=== PATIENT | female | born 1970 | race Hispanic/Latino ===

== ENCOUNTER 2018-03-19 16:16 | Observation (INO) | payer MEDICARE, OTHER ==
[2018-03-19 16:16] VITALS: BMI 40.4
[2018-03-19] MEDS ORDERED: Morphine 4 mg/ml ISec IVP STA (17:23)
[2018-03-19 17:49] LABS: BASO # 0.02 K/mm3 (0.0-2.0); BASO % 0.2 % (0.0-3.0); EOS # 0.1 (0.0-0.7); EOS % 0.8 % (1.5-5.0); GRAN # 7.33 (1.4-6.5); GRAN % 77.5 % (50.0-68.0); HEMOGLOBIN 10.8 g/dL (12.0-16.0); LYMPH # 1.5 (1.2-3.4); LYMPH % 16.1 % (22.0-35.0); MEAN CORPUSCULAR HEMOGLOBIN 27.4 pg (25.0-35.0); MONO # 0.5 (0.1-0.6); MONO % 5.4 % (1.0-6.0); RBC 3.94 10^6/uL (3.5-6.1); RED CELL DISTRIBUTION WIDTH 16.5 % (11.5-14.5); WHITE BLOOD COUNT 9.5 10^3/ul (4.5-11.0)
[2018-03-19 17:52] LABS: URINE BILIRUBIN NEGATIVE (NEGATIVE); URINE BLOOD SMALL (NEGATIVE); URINE GLUCOSE (UA) NEGATIVE (NEGATIVE); URINE LEUKOCYTE ESTERASE NEGATIVE Leu/uL (NEGATIVE); URINE PROTEIN NEGATIVE mg/dL (<30 mg/dL); URINE UROBILINOGEN 0.2 E.U./dL (<1 E.U./dL)
[2018-03-19 18:05] LABS: ALB/GLOB RATIO 1.3 (1.1-1.8); ALBUMIN 4.5 g/dL (3.0-4.8); ALT/SGPT 35 U/L (7-56); AST/SGOT 32 U/L (14-36); BLOOD UREA NITROGEN 10 mg/dL (7-21); CALCIUM 9.9 mg/dL (8.4-10.5); GFR AFRICAN-AMERICAN > 60; GFR NON-AFRICAN AMERICAN > 60; LIPASE 36 U/L (23-300)
[2018-03-19 18:08] LABS: URINE APPEARANCE CLEAR (CLEAR); URINE COLOR YELLOW (YELLOW)
[2018-03-19 18:15] LABS: URINE WBC 0 - 2 /hpf (0-6)
[2018-03-19 18:16] LABS: URINE BACTERIA FEW (NEG)
[2018-03-19] MEDS ORDERED: Iohexol 350 MG/100 ML VIAL ONE (18:59)
[2018-03-19] MEDS ORDERED: HYDROmorphone 1 mg/ml ISec IVP STA ×2 (19:51→22:37)
--- NOTE | 2018-03-19 20:36 | CT ---
EXAM: CT Abdomen and Pelvis With Intravenous Contrast EXAM DATE/TIME: 03/19/2018 5:24 PM CLINICAL HISTORY: The patient age is 47 years old and is female; Pain; Abdominal pain; Acute; Additional info: Right sided abd pain Facility exam id and description: Ct abdpelciv abd pelvis iv contrast only TECHNIQUE: Axial computed tomography images of the abdomen and pelvis with intravenous contrast. All CT scans at this facility use one or more dose reduction techniques, viz.: automated exposure control; ma/kV adjustment per patient size (including targeted exams where dose is matched to indication; i.e. head); or iterative reconstruction technique. Coronal and sagittal reformatted images were created and reviewed. CONTRAST: 100 mL of omni 350 administered intravenously. COMPARISON: CT - ABD PELVIS IV CONTRAST ONLY 2015-12-19 19:14 FINDINGS: Lung bases: Mild atelectatic changes are identified within the lingula and dependent portions of the lower lobes, left side greater than right. ABDOMEN: Liver: There is mild hypodense fatty infiltration of the liver. Gallbladder and bile ducts: Surgical clips are identified within the gallbladder fossa, compatible with cholecystectomy. Pancreas: Normal contour, without acute peripancreatic stranding. Spleen: No splenomegaly. Adrenals: No mass. Kidneys and ureters: There is right renal pelviectasis. Hypodense probable parapelvic cysts are visualized within the left kidney. One of the larger presumed parapelvic cysts measures 2.1 x 1.2 cm, which has increased in size. Stomach and bowel: There is moderate fecal material within the colon. No obstruction. The previously visualized wall thickening of the descending colon has resolved. PELVIS: Appendix: No findings to suggest acute appendicitis. Bladder: No mass. Reproductive: Within the left ovary, there is a 1.9 x 1.6 cm hypodense probable cyst. ABDOMEN and PELVIS: Intraperitoneal space: No free air. Bones/joints: There is grade I anterolisthesis of L3 on L4. Advanced degenerative changes are again seen at this level, with severe bilateral neural foraminal narrowing. Hypertrophic degenerative changes are noted within the spine. Soft tissues: There is mild herniation of fat into the umbilicus. Vasculature: No abdominal aortic aneurysm. Lymph nodes: A few stable intrapelvic lymph nodes are identified, with thin cortices and prominent fatty elicia. There is no significant retroperitoneal lymphadenopathy. IMPRESSION: 1. There is mild hypodense fatty infiltration of the liver. 2. There is right renal pelviectasis. Hypodense probable parapelvic cysts are visualized within the left kidney. One of the larger presumed parapelvic cysts measures 2.1 x 1.2 cm, which has increased in size. 3. Within the left ovary, there is a 1.9 x 1.6 cm hypodense probable cyst. This can be further evaluated with ultrasound. 4. There is grade I anterolisthesis of L3 on L4. Advanced degenerative changes are again seen at this level, with severe bilateral neural foraminal narrowing. 5. Additional CT findings described above.
--- NOTE | 2018-03-19 22:45 | ED PDOC ---
Arrival/HPI - General Chief Complaint: Abdominal Pain Time Seen by Provider: 03/19/18 16:32 Historian: Patient - History of Present Illness Narrative History of Present Illness (Text): 03/19/18 22:54 47-year-old female with a history of Crohn's disease presents today with a three -day history of worsening abdominal pain. Patient believes that she's having a flareup of her Crohn's. Patient denies chest pain or shortness of breath. She denies diarrhea. Patient complaining of nausea no vomiting. Patient denies dizziness or weakness. Patient states pain is crampy and intermittently sharp. Pt states pain stays on the right side of the abdomen. She denies radiation of pain to the flank. She denies dysuria or urinary frequency. No other complaints Time/Duration: Other (3 days) Symptom Onset: Gradual Symptom Course: Worsening Past Medical History - Provider Review Nursing Documentation Reviewed: Yes - Travel History Have you recently traveled outside [place] w/in the past 3 mons?: No - Infectious Disease Hx of Infectious Diseases: None - Tetanus Immunization Tetanus Immunization: Unknown - Cardiac Hx Cardiac Disorders: Yes Hx Hypertension: Yes Hx Pacemaker: No - Pulmonary Hx Respiratory Disorders: No - Neurological Hx Paralysis: No - HEENT Hx HEENT Disorder: No - Renal Hx Renal Disorder: No - Endocrine/Metabolic Hx Diabetes Mellitus Type 2: No - Hematological/Oncological Hx Blood Transfusions: No Hx Blood Transfusion Reaction: (NA) - Integumentary Hx Dermatological Disorder: No - Musculoskeletal/Rheumatological Hx Musculoskeletal Disorders: Yes (6 buldging disks) - Gastrointestinal Hx Gastrointestinal Disorders: Yes Hx Crohn's Disease: Yes Hx Gastroesophageal Reflux: Yes - Genitourinary/Gynecological Hx Genitourinary Disorders: No - Psychiatric Hx Emotional Abuse: No Hx Physical Abuse: No Hx Substance Use: No - Surgical History Hx Section: Yes - Anesthesia Hx Anesthesia Reactions: No Hx Malignant Hyperthermia: No - Suicidal Assessment Feels Threatened In Home Enviroment: No Family/Social History - Physician Review Nursing Documentation Reviewed: Yes Family/Social History: Unknown Family HX Smoking Status: Never Smoked Hx Alcohol Use: No Hx Substance Use: No Hx Substance Use Treatment: No Allergies/Home Meds Allergies/Adverse Reactions: Allergies No Known Allergies Allergy (Verified 03/19/18 16:28) Home Medications: Home Meds Medication Instructions Recorded Confirmed Dexlansoprazole [Dexilant] 60 mg PO DAILY 08/13/13 03/19/18 Mercaptopurine [6-Mp] 50 mg PO DAILY 02/20/14 03/19/18 Calcitriol [Rocaltrol] 0.25 mcg PO DAILY 07/04/16 03/19/18 Calcium Carbonate/Vitamin D3 2 tab PO DAILY 07/04/16 03/19/18 [Caltrate 600 + D Tablet] Mesalamine ER Cap [Pentasa] 2,000 mg PO BID 07/04/16 03/19/18 Multivit-Min/FA/Lycopen/Lutein 2 tab PO DAILY 07/04/16 03/19/18 [Centrum Silver Tablet] hydrOXYzine HCl [Atarax] 25 mg PO Q8H 07/04/16 03/19/18 predniSONE [predniSONE Tab] 5 mg PO DAILY PRN 07/04/16 03/19/18 Ferrous Sulfate [Feosol] 325 mg PO BID 03/19/18 03/19/18 amLODIPine [Norvasc] 5 mg PO DAILY 03/19/18 03/19/18 Review of Systems - Review of Systems Constitutional: absent: Fatigue, Fevers Respiratory: absent: SOB, Cough Cardiovascular: absent: Chest Pain, Palpitations Gastrointestinal: Abdominal Pain, Nausea, Vomiting. absent: Constipation, Diarrhea Genitourinary Female: absent: Dysuria, Frequency, Hematuria Musculoskeletal: absent: Arthralgias, Back Pain, Neck Pain Skin: absent: Rash, Pruritis Psychiatric: absent: Anxiety, Depression Physical Exam Vital Signs Reviewed: Yes Vital Signs Temp Pulse Resp BP Pulse Ox 03/19/18 22:07 78 18 121/62 99 03/19/18 18:28 98.6 F 72 16 184/92 H 99 03/19/18 16:49 98.7 F 81 18 126/69 100 Temperature: Afebrile Blood Pressure: Normal Pulse: Regular Respiratory Rate: Normal Appearance: Positive for: Well-Appearing, Non-Toxic, Comfortable Pain Distress: None Mental Status: Positive for: Alert and Oriented X 3 - Systems Exam Head: Present: Atraumatic Neck: Present: Normal Range of Motion Respiratory/Chest: Present: Clear to Auscultation, Good Air Exchange. No: Respiratory Distress, Accessory Muscle Use Cardiovascular: Present: Regular Rate and Rhythm, Normal S1, S2. No: Murmurs Abdomen: Present: Tenderness (RUQ/ RLQ tenderness), Guarding (voluntary). No: Distention, Peritoneal Signs, Rebound Back: Present: Normal Inspection. No: Midline Tenderness, Paraspinal Tenderness Upper Extremity: Present: Normal ROM Lower Extremity: Present: Normal ROM Neurological: Present: GCS=15, Speech Normal Skin: Present: Warm, Dry, Normal Color. No: Rashes Psychiatric: Present: Alert, Oriented x 3 Medical Decision Making ED Course and Treatment: 03/19/18 22:56 Patient is nontoxic well appearing with stable vital signs presenting with severe right sided abdominal pain CBC: wbc: 11.5 CMP: wnl Urinalysis: + blood CAT scan: FINDINGS: Lung bases: Mild atelectatic changes are identified within the lingula and dependent portions of the lower lobes, left side greater than right. ABDOMEN: Liver: There is mild hypodense fatty infiltration of the liver. Gallbladder and bile ducts: Surgical clips are identified within the gallbladder fossa, compatible with cholecystectomy. Pancreas: Normal contour, without acute peripancreatic stranding. Spleen: No splenomegaly. Adrenals: No mass. Kidneys and ureters: There is right renal pelviectasis. Hypodense probable parapelvic cysts are visualized within the left kidney. One of the larger presumed parapelvic cysts measures 2.1 x 1.2 cm, which has increased in size. Stomach and bowel: There is moderate fecal material within the colon. No obstruction. The previously visualized wall thickening of the descending colon has resolved. PELVIS: Appendix: No findings to suggest acute appendicitis. Bladder: No mass. Reproductive: Within the left ovary, there is a 1.9 x 1.6 cm hypodense probable cyst. ABDOMEN and PELVIS: Intraperitoneal space: No free air. Bones/joints: There is grade I anterolisthesis of L3 on L4. Advanced degenerative changes are again seen at this level, with severe bilateral neural foraminal narrowing. Hypertrophic degenerative changes are noted within the spine. Soft tissues: There is mild herniation of fat into the umbilicus. Vasculature: No abdominal aortic aneurysm. Lymph nodes: A few stable intrapelvic lymph nodes are identified, with thin cortices and prominent fatty elicia. There is no significant retroperitoneal lymphadenopathy. IMPRESSION: 1. There is mild hypodense fatty infiltration of the liver. 2. There is right renal pelviectasis. Hypodense probable parapelvic cysts are visualized within the left kidney. One of the larger presumed parapelvic cysts measures 2.1 x 1.2 cm, which has increased in size. 3. Within the left ovary, there is a 1.9 x 1.6 cm hypodense probable cyst. This can be further evaluated with ultrasound. 4. There is grade I anterolisthesis of L3 on L4. Advanced degenerative changes are again seen at this level, with severe bilateral neural foraminal narrowing. 5. Additional CT findings described above. Patient reassessment: pt requiring multiple doses of pain medications. Discussed all results with patient in depth case discussed with dr. silveira; excepts observational status admission to [facility] [place] with consult GI. Impression: Abdominal pain, intractable, hematuria, ovarian cyst, kidney cysts admit observational status to med/surg - Lab Interpretations Lab Results: 03/19/18 17:28 03/19/18 17:28 Lab Results 03/19/18 17:28: WBC 9.5, RBC 3.94, Hgb 10.8 L, Hct 32.7 L, MCV 83.0, MCH 27.4, MCHC 33.0, RDW 16.5 H, Plt Count 328, MPV 10.0, Gran % 77.5 H, Lymph % (Auto) 16.1 L, Callahan % (Auto) 5.4, Eos % (Auto) 0.8 L, Baso % (Auto) 0.2, Gran # 7.33 H , Lymph # (Auto) 1.5, Callahan # (Auto) 0.5, Eos # (Auto) 0.1, Baso # (Auto) 0.02 03/19/18 17:28: Sodium 143, Potassium 3.8, Chloride 105, Carbon Dioxide 27, Anion Gap 15, BUN 10, Creatinine 0.5 L, Est GFR ( Amer) > 60, Est GFR ( Non-Af Amer) > 60, Random Glucose 108, Calcium 9.9, Total Bilirubin 0.4, AST 32 , ALT 35, Alkaline Phosphatase 58, Total Protein 7.9, Albumin 4.5, Globulin 3.4 , Albumin/Globulin Ratio 1.3, Lipase 36 03/19/18 17:28: Urine Color Yellow, Urine Appearance Clear, Urine pH 7.0, Ur Specific [place] 1.015, Urine Protein Negative, Urine Glucose (UA) Negative, Urine Ketones Negative, Urine Blood Small H, Urine Nitrate Negative, Urine Bilirubin Negative, Urine Urobilinogen 0.2, Ur Leukocyte Esterase Negative, Urine RBC 5 - 10, Urine WBC 0 - 2, Ur Epithelial Cells 4 - 5, Urine Bacteria Few - RAD Interpretation Radiology Orders: 03/19/18 17:24 ABD & PELVIS IV CONTRAST ONLY [CT] Stat - Medication Orders Current Medication Orders: Hydromorphone HCl (Dilaudid) 1 mg IVP STAT STA Stop: 03/19/18 22:38 Discontinued Medications Hydromorphone HCl (Dilaudid) 1 mg IVP STAT STA Stop: 03/19/18 19:52 Last Admin: 03/19/18 19:59 Dose: 1 mg MAR Pain Assessment Document 03/19/18 19:59 OCS (Rec: 03/19/18 20:00 OCS [id number]) Pain Reassessment Is this a pain reassessment? Yes Sleep Is patient sleeping during reassessment? No Presence of Pain Presence of Pain Yes Pain Scale Used Pain Scale Used Numeric Location Left, Right or Bilateral Right Upper or Lower Lower Pain Location Body Site Abdomen Description Description Constant Intensity of Pain at present 10 Pain Behavior Irritability Rubbing Site Facial Grimacing Aggravating Factors ADL's IVP Administration Document 03/19/18 19:59 OCS (Rec: 03/19/18 20:00 OCS [id number]) Charges for Administration # of IVP Administrations 1 Morphine Sulfate (Morphine) 4 mg IVP STAT STA Stop: 03/19/18 17:24 Last Admin: 03/19/18 17:50 Dose: 4 mg MAR Pain Assessment Document 03/19/18 17:50 OCS (Rec: 03/19/18 17:50 OCS [id number]) Pain Reassessment Is this a pain reassessment? Yes Sleep Is patient sleeping during reassessment? No Presence of Pain Presence of Pain Yes Pain Scale Used Pain Scale Used Numeric Location Left, Right or Bilateral Right Upper or Lower Lower Pain Location Body Site Abdomen Description Description Constant Intensity of Pain at present 10 Pain Behavior Irritability Rubbing Site Facial Grimacing Aggravating Factors ADL's IVP Administration Document 03/19/18 17:50 OCS (Rec: 03/19/18 17:50 OCS [id number]) Charges for Administration # of IVP Administrations 1 Ondansetron HCl (Zofran Inj) 4 mg IVP STAT STA Stop: 03/19/18 17:24 Last Admin: 03/19/18 17:32 Dose: 4 mg IVP Administration Document 03/19/18 17:32 OCS (Rec: 03/19/18 17:32 OCS [id number]) Charges for Administration # of IVP Administrations 1 Disposition/Present on Arrival - Present on Arrival Any Indicators Present on Arrival: No History of DVT/PE: No History of Uncontrolled Diabetes: No Urinary Catheter: No History of Decub. Ulcer: No History Surgical Site Infection Following: None - Disposition Have Diagnosis and Disposition been Completed?: Yes Diagnosis: Hematuria, Kidney cysts, Ovarian cyst, Abdominal pain Disposition: HOSPITALIZED Disposition Time: 20:00 Patient Plan: Observation Patient Problems: Current Active Problems Problem Status Onset Abdominal pain Acute Hematuria Acute Ovarian cyst Acute Condition: FAIR Referrals: Kevin Silveira DO [Primary Care Provider] - Follow up with primary
[2018-03-19] MEDS ORDERED: Sodium Chloride 0.9% 1,000 ML IV STA (23:40)
[2018-03-20] MEDS ORDERED: Sodium Chloride 0.9% 1,000 ML IV STA (01:38)
[2018-03-20 04:27] VITALS: RESP 20
[2018-03-20] MEDS: HYDROmorphone 1 mg/ml ISec IVP PRN ×2 (06:44→20:19)
[2018-03-20] MEDS: Mesalamine ER Cap 500 MG PO SCH ×2 (09:43→18:13)
--- NOTE | 2018-03-20 17:22 | HP ---
DATE OF EXAM: HISTORY OF PRESENT ILLNESS: I saw Karo in her bed this morning. She comes in with a 3-day history of worsening abdominal pain. She is a 47-year-old white female who tells me she is having a flare-up of her Crohn's, that is what it feels like. No shortness of breath or chest pain. She has had lots of nausea and vomiting, some cramping in her abdomen and it feels like another Crohn's exacerbation. She has a history of hypertension, Crohn disease, no diabetes. She is obese. She has bulging discs. She has 6 of them. She has reflux. She has history of a . FAMILY HISTORY: Unknown family history, but has CHF, hypertension, diabetes. SOCIAL HISTORY: She never smoked. No alcohol. No drugs. ALLERGIES: NO KNOWN DRUG ALLERGIES. MEDICATIONS: She takes Dexilant, mercaptopurine, Rocaltrol, vitamin D3, Pentasa, multivitamins, Atarax, prednisone, Feosol and Norvasc. REVIEW OF SYSTEMS: No fevers. No fatigue. No shortness of breath or cough. No chest pains or palpitations. She is having nausea and vomiting. No abdominal pain. No constipation or diarrhea. No problems urinating. No back pain. No itching or skin issues. No anxiety or depression. PHYSICAL EXAMINATION: GENERAL: Well-appearing, comfortable at this time. Alert and oriented x3. VITAL SIGNS: She has a 98.6 temperature, 72 pulse, 16 respiratory rate, 121/62 blood pressure, 99% O2 sat on room air. HEENT: Head: Atraumatic, normocephalic. NECK: Supple. Throat is moist. Thyroid midline. No appreciable lymphadenopathy. HEART: Regular rate. Normal S1, S2. LUNGS: Clear to auscultation bilaterally. Fair exchange. No wheezes, rhonchi or rales. ABDOMEN: Some right lower quadrant tenderness. No guarding at this time. Mildly distended, but not bad. She does have bowel sounds. EXTREMITIES: No edema. She is morbidly obese. NEUROLOGIC: GCS is 15. Speech is normal. Cranial nerves II through XII grossly intact. Alert and oriented x3. SKIN: Warm and dry. No apparent rashes or ulcers appreciated. LABORATORY DATA AND IMAGING: On exam, her CAT scan showed hypodense fatty infiltration of the liver. Right renal pelviectasis. Some cyst was found in the left kidney. There is a left ovarian cyst. There is some degenerative changes in the spine. Did not report any Crohn disease. She had lab tests. Urine is clean. She has a sodium 143, potassium 3.8, BUN 10, creatinine 0.5, GFR is greater than 60, sugar is 108, calcium 9.9, total bili is 0.4, AST is 32, ALT 35, alkaline phosphatase 58, total protein 7.9, lipase is 76. White count 9.5, hemoglobin 10.8, hematocrit 32.7, platelets of 328. She had a CAT scan, I discussed that. She had a lab test, I discussed that. She will have a consult with her telecommunications officer, Dr. Yap. She will be having some pain medications, some blood pressure pills, IV fluids. She will have a full liquid diet for breakfast and a regular diet for lunch. If she does go for lunch, it is very possible she could be discharged today. She had intractable nausea and vomiting with abdominal pain, thinking that it is a Crohn's flare-up. It looks like it is ovarian cysts and kidney cysts. Kevin Smith DO
--- NOTE | 2018-03-20 17:51 | CON ---
DATE: 03/20/2018 HISTORY OF PRESENT ILLNESS: I saw Ms. Mueller this morning. She is a 47-year-old white female with past medical history of Crohn's enterocolitis. The patient presented with a 3-day history of increasing abdominal pain associated with nausea and vomiting. Note that the patient has been seen on an frequent basis for symptoms of nausea, vomiting and abdominal pain, which fluctuates monthly. She noted that the pain level was much greater relative to previous with excessive stress levels at home. Apparently, her sister's lost the job. This was associated with a lot of anxiety and depression. The patient denied any rectal bleeding or hematemesis. Note that the patient is being controlled in the outside fairly well with the use of Pentasa plus low dose analgesics, Zofran, and 6-mercaptopurine. She experiences severe flares roughly two to three times per year. At the current time point at bedside, patient indicates the pain is mostly periumbilical, although there have been components of epigastric and left upper quadrant pain. The abdomen is mildly distended. At home, she tried tapering dose of prednisone with the onset of Crohn's flare starting at 15 mg, but was ineffective. PHYSICAL EXAMINATION: VITAL SIGNS: I reviewed this patient's vital signs. HEENT: Noncontributory except for dry mouth. LUNGS: Decreased breath sounds, basilar. HEART: Regular rhythm. ABDOMEN: Protuberant. Tender periumbilical area, mild tenderness elicited in the upper gastric. She has irregular bowel sounds. LABORATORY DATA: I reviewed this patient's laboratory data. It consists of H and H of 10 and 32 with platelet count of 328. Chemistry is noncontributory. The CT was significant for mild atelectasis. She has fatty infiltration of liver; the surgical clip is compatible with cholecystectomy. Bowel loops are significant for moderate amount of stool in all aspects of colon. So, this is a probable ovarian cyst. 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 PLAN: IV fluids, analgesics, antiemetics. Electively discussed the possibility of two pulsed doses of hydrocortisone today, possibly one tomorrow for relief of abdominal pain. On prior occasions due to severe pain flares, I discussed the possibility of moving to a TNF inhibitor and formally Philipp which was discussed today also at bedside. Shawn Yap DO, PhD ASHLEY
[2018-03-21] MEDS: HYDROmorphone 1 mg/ml ISec IVP PRN (05:25)
--- NOTE | 2018-03-21 07:55 | PN ---
DATE: 03/21/2018 SUBJECTIVE: Examined Ms. Mueller this morning. She is a 47-year-old very challenged female with diagnosis of enterocolitis, admitted with a flare of the latter. Patient noted nausea, vomiting, abdominal pain, change of bowel movements prior to the admission, which prompted her to come to the emergency room. Yesterday, the patient received 2 pulsed doses of hydrocortisone by about seven hours and she had significant relief of symptoms. In the hospital, she has been on IV fluids as well as IV PPI, and analgesics, Zofran. At the bedside this morning, the patient notes significant decrease in pain. Nausea and vomiting has resolved to a significant extent. PHYSICAL EXAMINATION: VITAL SIGNS: I reviewed this patient's vital signs. HEENT: Noncontributory. LUNGS: Decreased breath sounds, basilar. HEART: Regular rhythm. ABDOMEN: Protuberant. Tenderness decreased substantially in all quadrants, but blow molding machine tender in periumbilical area. OVERALL ASSESSMENT: This is a 47-year-old white female with diagnosis of enterocolitis with symptoms of nausea, vomiting, abdominal pain. Patient responded to steroid pulse therapy and received 1 dose of hydrocortisone today at 08:00 a.m. The patient feels improved. She may be discharged later this morning or early afternoon starting at a steroid taper of 25 mg. I reviewed the issue of TNF inhibitor with this patient on multiple occasions and she was agreeable to the initiation of Humira therapy, which will be started as an outpatient. Other medications, the patient should be maintained on will be 6-mercaptopurine plus Pentasa. Medications prescribed by Dr. Smith will be continued as well as an outpatient. The issue of diet, should consist of probably soft, small portions, while patient on steroid taper. I will be following up with the patient in the office in about a week and a half. Shawn Yap DO, PhD ASHLEY
[2018-03-21 08:02] VITALS: PULSE 73; TEMP 98.6; O2SAT 99
[2018-03-21 08:04] LABS: HEMOGLOBIN 9.6 g/dL (12.0-16.0); MEAN CELL VOLUME 84.2 fl (80.0-105.0); MEAN CORPUSCULAR HGB CONC 32.1 g/dl (31.0-37.0); RBC 3.55 10^6/uL (3.5-6.1); WHITE BLOOD COUNT 8.3 10^3/ul (4.5-11.0)
[2018-03-21 08:27] LABS: ALB/GLOB RATIO 1.2 (1.1-1.8); ALBUMIN 3.9 g/dL (3.0-4.8); ALT/SGPT 34 U/L (7-56); AST/SGOT 24 U/L (14-36); BLOOD UREA NITROGEN 13 mg/dL (7-21); CALCIUM 9.4 mg/dL (8.4-10.5); GFR AFRICAN-AMERICAN > 60; GFR NON-AFRICAN AMERICAN > 60
[2018-03-21] MEDS: Mesalamine ER Cap 500 MG PO SCH (09:10)
[2018-03-21 09:22] VITALS: BP 107/66
--- NOTE | 2018-03-22 04:15 | DS ---
HISTORY OF PRESENT ILLNESS: I saw Viola sitting up, eating breakfast. She is doing well, much better. She had a dose of steroids from the legal technician. She will be going home after lunch today. She is on Norvasc, Pentasa, prednisone, Protonix, Rocaltrol, Tylenol and Zofran. PHYSICAL EXAMINATION: VITAL SIGNS: She has a 98.6 temp, 73 pulse, 144/60 blood pressure, 20 respiratory rate, 99% O2 sat on room air. HEENT: Head is atraumatic, normocephalic. HEART: Regular rate. LUNGS: Clear to auscultation. ABDOMEN: Soft, nontender, positive bowel sounds. No guarding, no rebound or CVA tenderness. EXTREMITIES: No edema. She is comfortable. LABORATORY DATA: She has a 8.3 white count, 9.6 hemoglobin, 29.9 hematocrit with 311 platelets. Sodium 142, potassium 3.9, BUN 13, creatinine 0.5. GFR is greater than 60. Sugar is 101. Calcium is 9.4, total bili is 0.2, AST is 24, ALT 34, alk phos 57, total protein 7.2 and the urine was clean. Micro was negative. ASSESSMENT AND PLAN: She was seen by GI. She will be discharged after lunch today. Follow up on the outpatient. If she needs any medications, she will call me. She was here for abdominal pain, nausea, vomiting, possible Crohn's, and ovarian cyst. Kevin Smith DO
== END 2018-03-21 13:19 | disposition home or self-care (01) ==
LOC: ED 16:16 → ERH 22:37 → 5RSO 03-20 02:11
PROVIDERS: ADMIT Family Medicine; ATTEND Family Medicine
DX: K50.90 Crohn's disease, unspecified, without complications (principal); N83.209 Unspecified ovarian cyst, unspecified side; E66.9 Obesity, unspecified; F41.9 Anxiety disorder, unspecified; F32.89 Other specified depressive episodes; I10 Essential (primary) hypertension; K21.9 Gastro-esophageal reflux disease without esophagitis; K76.0 Fatty (change of) liver, not elsewhere classified; M43.16 Spondylolisthesis, lumbar region; N28.1 Cyst of kidney, acquired; N28.89 Other specified disorders of kidney and ureter; Z82.49 Family history of ischemic heart disease and other diseases of the circulatory system; Z83.3 Family history of diabetes mellitus; Z98.891 History of uterine scar from previous surgery; R40.2412 Glasgow coma scale score 13-15, at arrival to emergency department; R31.9 Hematuria, unspecified; Z68.41 Body mass index [BMI] 40.0-44.9, adult
CPT/HCPCS: 36415; 74177; 80053; 81001; 83690; 85025; 85027; 87040; 87086; 96374; 96375; 96376; 99284; C9113; G0378; J1170; J1720; J2270; J2405; J7030; Q9967

== ENCOUNTER 2018-12-04 08:08 | Outpatient (CLI) | payer MEDICARE, OTHER | END 2018-12-04 08:09 | disposition home or self-care (01) | LOC: LAB 08:08 ==